=== PATIENT | male | born 1980 | race Caucasian/White ===

== ENCOUNTER 2020-08-02 16:00 | Outpatient (RCR) | payer OTHER, SELFPAY | END 2020-08-03 17:17 | disposition other institution (70) | LOC: HO.PT 16:00 | PROVIDERS: PCP Internal Medicine; Visit Provider Physical Medicine & Rehabilitation | DX: M54.5 Low back pain (principal) | CPT/HCPCS: 97110; 97530 ==

== ENCOUNTER 2022-05-22 04:22 | Emergency (ER) | payer OTHER, SELFPAY ==
--- NOTE | ~2022-05-22 | XR_ITS ---
EXAMINATION: XR ANKLE, LEFT CLINICAL INFORMATION: Fall. Pain. COMPARISON: None TECHNIQUE: AP, lateral, and mortise views of the left ankle. FINDINGS: No fracture or dislocation. The ankle mortise is congruent. No ankle joint effusion. Mild medial soft tissue swelling. XR/XR ankle LT min 3V IMPRESSION: Mild soft tissue swelling. No acute osseous abnormality.
[2022-05-22 04:30] VITALS: BP 156/97; PULSE 98; RESP 18; TEMP 37.1; O2SAT 99; BMI 40.1
--- NOTE | 2022-05-22 04:52 | ED_ITS ---
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 Patient denies any fever chills any systemic. Able to ambulate. No distress Related Data Previous Rx's Medication Instructions Recorded ibuprofen 400 mg tablet 400 mg PO Q6H PRN pain #20 tabs 05/22/22 Allergies Allergy/AdvReac Type Severity Reaction Status Date / Time dog dander Allergy Unknown RUNNY NOSE Unverified 05/18/20 16:15 Horse/Equine Containing Allergy Unknown RUNNY NOSE Unverified 05/18/20 16:15 Products [HORSE/EQUINE CONTAINING PRODUCTS] Environmental/Seasonal Allergy Unknown Uncoded 09/13/16 00:00 Allergi Pt states no known food Allergy Unknown Uncoded 09/13/16 00:00 allerg SEASONAL ALLERGIES Allergy Unknown WATERY EYES Uncoded 05/18/20 16:15 Review of Systems Review of Systems: Positive twisting right ankle Yes all other systems are reviewed and are negative [facility] Past Medical History Attestation statement: The following information was validated with the patient. Social History Social History Advance Directives: No Advance Directives Information Provided: No Physical Exam Vital Signs: Vital Signs: Last Vital Signs Temp 98.7 F 05/22/22 04:30 Pulse 98 05/22/22 04:30 Resp 18 05/22/22 04:30 BP 156/97 H 05/22/22 04:30 Pulse Ox 99 05/22/22 04:30 O2 Del Method 05/22/22 04:30 BMI result Body Mass Index 40.1 Appearance: Alert. Oriented X3. No acute distress. Eyes: Pupils equal, round and reactive to light. ENT: Pharynx normal. Neck: Normal inspection. Neck supple. No lymph nodes noted. No crepitus CVS: Normal heart rate and rhythm. Pulses normal. Normal S1 and S2 Respiratory: No respiratory distress. Breath sounds normal. No Wheezing. No rales Abdomen: Soft and nontender. No rigidity. No distention. good BS x4 Skin: Skin warm and dry. Normal skin color. Normal skin turgor. Extremities: No lower extremity edema. Neurovascular intact to all extremities. No Lacerations. No Rash. Minimal pain on palpation of the medial malleolus. There is no pain at the base of the 5th metatarsal. No pain at the posterior aspect of the lateral malleolus. Ambulates with normal gait. Distally neurovascularly Neuro: Oriented X 3. No motor deficit. No sensory deficit. Moving all extermities. No slurred speech MDM - Extremity Injury (Lower) MDM Narrative Medical decision making narrative: X-ray showed no acute fractures. Likely a sprain ankle. The patient takes Motrin pain. Follow-up with were connection on outpatient basis Discharge Plan Discharge Clinical Impression: Ankle sprain and strain Patient Disposition: Home, Self-Care Instructions: Ankle Sprain (ED) Additional Instructions: Off from work today. Follow up with were connection later on today Prescriptions: New ibuprofen 400 mg tablet 400 mg PO Q6H PRN (Reason: pain) Qty: 20 0RF Referrals: [facility] [Provider Group]
--- NOTE | 2022-05-22 05:08 | PC.NURSE ---
Reviewed discharge instructions with pt. pt verbalized understanding
== END 2022-05-22 05:09 | disposition home or self-care (01) ==
PROVIDERS: Emergency Provider Emergency Medicine Emergency Medical Services; PCP Internal Medicine
DX: S93.401A Sprain of unspecified ligament of right ankle, initial encounter (principal); S96.911A Strain of unspecified muscle and tendon at ankle and foot level, right foot, initial encounter; X50.1XXA Overexertion from prolonged static or awkward postures, initial encounter; Y93.89 Activity, other specified; Y92.89 Other specified places as the place of occurrence of the external cause; Y99.0 Civilian activity done for income or pay
CPT/HCPCS: 73610; 99282; 99283

== ENCOUNTER → 2022-05-23 07:52 | Outpatient (BNVA) | payer OTHER, SELFPAY | PROVIDERS: PCP Internal Medicine; Visit Provider Internal Medicine | DX: S93.492A Sprain of other ligament of left ankle, initial encounter (principal); X50.1XXA Overexertion from prolonged static or awkward postures, initial encounter | CPT/HCPCS: 99202 ==

== ENCOUNTER → 2022-05-27 09:04 | Outpatient (BNVA) | payer OTHER, SELFPAY | PROVIDERS: PCP Internal Medicine; Visit Provider Internal Medicine | DX: S93.492A Sprain of other ligament of left ankle, initial encounter (principal); X50.1XXA Overexertion from prolonged static or awkward postures, initial encounter | CPT/HCPCS: 99213 ==

== ENCOUNTER → 2022-06-03 07:41 | Outpatient (BNVA) | payer OTHER, SELFPAY | PROVIDERS: PCP Internal Medicine; Visit Provider Internal Medicine | DX: S93.492D Sprain of other ligament of left ankle, subsequent encounter (principal); X50.1XXD Overexertion from prolonged static or awkward postures, subsequent encounter | CPT/HCPCS: 99213 ==

== ENCOUNTER → 2022-06-14 07:55 | Outpatient (BNVA) | payer OTHER, SELFPAY | PROVIDERS: PCP Internal Medicine; Visit Provider Internal Medicine | DX: S93.492D Sprain of other ligament of left ankle, subsequent encounter (principal); X50.1XXD Overexertion from prolonged static or awkward postures, subsequent encounter | CPT/HCPCS: 99213 ==

== ENCOUNTER → 2022-06-21 07:42 | Outpatient (BNVA) | payer OTHER, SELFPAY | PROVIDERS: PCP Internal Medicine; Visit Provider Internal Medicine | DX: S93.492D Sprain of other ligament of left ankle, subsequent encounter (principal); X50.1XXD Overexertion from prolonged static or awkward postures, subsequent encounter | CPT/HCPCS: 99213 ==

== ENCOUNTER → 2022-07-01 07:47 | Outpatient (BNVA) | payer OTHER, SELFPAY | PROVIDERS: PCP Internal Medicine; Visit Provider Internal Medicine | DX: S93.492D Sprain of other ligament of left ankle, subsequent encounter (principal); X50.1XXD Overexertion from prolonged static or awkward postures, subsequent encounter | CPT/HCPCS: 99213 ==

== ENCOUNTER 2022-07-15 07:57 | Outpatient (REF) | payer OTHER, SELFPAY ==
--- NOTE | ~2022-07-15 | MR_ITS ---
EXAMINATION: MRI OF THE LEFT ANKLE WITHOUT CONTRAST CLINICAL INFORMATION: Injury left ankle. Left ankle pain. COMPARISON: None. TECHNIQUE: MRI of the left ankle performed without contrast high-field MRI scanner. FINDINGS: SUBCUTANEOUS SOFT TISSUES: Minimal edema along the medial aspect of the ankle. MUSCLES/TENDONS: Normal. PLANTAR FASCIA: Normal. NEUROVASCULAR STRUCTURES/TARSAL TUNNEL: Normal. LIGAMENTS: Deltoid Ligament: There is heterogeneity and increased signal along the superficial fibers of the deltoid ligament compatible partial tear likely acute or subacute. Anterior Talofibular Ligament: There is increased T2 signal along the otherwise normal-appearing ligament compatible with a low-grade partial tear. Remaining ligaments intact. BONE/CARTILAGE: There is prominent bone marrow edema in the head and neck of the talus. Question slight concavity along the articular surface of the talar head. This most likely reflects an area of bone contusion or osteochondral impaction fracture of the head of the talus. There is a mild effusion of the talonavicular joint. Remaining bone and joints are unremarkable. MR/MR ankle LT wo con IMPRESSION: 1. Partial tears of the deltoid ligament and anterior talofibular ligament likely acute or subacute. 2. Bone contusion of the head of the talus versus osteochondral impaction fracture. 3. Mild effusion of the talonavicular joint.
== END 2022-07-15 07:58 | disposition home or self-care (01) ==
LOC: HO.MRI 07:57
PROVIDERS: Visit Provider Internal Medicine
DX: S99.912A Unspecified injury of left ankle, initial encounter (principal); M25.572 Pain in left ankle and joints of left foot; X58.XXXA Exposure to other specified factors, initial encounter; Y93.9 Activity, unspecified; Y92.9 Unspecified place or not applicable; Y99.9 Unspecified external cause status
CPT/HCPCS: 73721

== ENCOUNTER → 2022-07-22 07:45 | Outpatient (BNVA) | payer OTHER, SELFPAY | PROVIDERS: PCP Internal Medicine; Visit Provider Internal Medicine | DX: S93.492D Sprain of other ligament of left ankle, subsequent encounter (principal); X50.1XXD Overexertion from prolonged static or awkward postures, subsequent encounter | CPT/HCPCS: 99213 ==

== ENCOUNTER → 2022-10-02 11:24 | Outpatient (BNVA) | payer OTHER, SELFPAY | PROVIDERS: PCP Internal Medicine; Visit Provider Physician Assistant Medical | DX: S39.012A Strain of muscle, fascia and tendon of lower back, initial encounter (principal); X58.XXXA Exposure to other specified factors, initial encounter | CPT/HCPCS: 99202 ==

== ENCOUNTER → 2022-10-07 13:03 | Outpatient (BNVA) | payer OTHER, SELFPAY | PROVIDERS: PCP Internal Medicine; Visit Provider Physician Assistant Medical | DX: S39.012A Strain of muscle, fascia and tendon of lower back, initial encounter (principal); X58.XXXA Exposure to other specified factors, initial encounter | CPT/HCPCS: 99213 ==

== ENCOUNTER → 2022-10-17 09:30 | Outpatient (BNVA) | payer OTHER, SELFPAY | PROVIDERS: PCP Internal Medicine; Visit Provider Physician Assistant | DX: S39.012A Strain of muscle, fascia and tendon of lower back, initial encounter (principal); X58.XXXD Exposure to other specified factors, subsequent encounter | CPT/HCPCS: 99213 ==

== ENCOUNTER 2023-03-01 08:54 | Outpatient (REF) | payer OTHER, SELFPAY ==
[2023-03-01 09:52] LABS: Alanine Aminotransferase 31 U/L (0-40); Albumin Level 4.1 g/dL (3.5-5.0); Alkaline Phosphatase 60 U/L (39-117); Anion Gap 16 (12-20); Aspartate Amino Transferase 16 U/L (5-37); Bilirubin Total 1.5 mg/dL (0.0-1.0); Blood Urea Nitrogen 19 mg/dL (9-16); Calcium 9.4 mg/dL (8.4-10.2); Carbon Dioxide 26 mmol/L (22-29); Chloride 108 mmol/L (96-108); Cholesterol 206 mg/dL; Estimated Glomerular Filt Rate > 60; Glucose Fasting 100 mg/dL (60-99); HDL Cholesterol 33 mg/dL; LDL Cholesterol Calculated 130 mg/dl; Potassium 4.2 mmol/L (3.3-5.1); Sodium 146 mmol/L (135-145); Total Protein 7.3 g/dL (6.5-8.0); Triglycerides 217 mg/dL
[2023-03-01 10:09] LABS: Thyroid Stimulating Hormone 1.04 uIU/mL (0.32-4.0)
== END 2023-03-01 08:55 | disposition home or self-care (01) ==
LOC: HO.LAB 08:54
PROVIDERS: PCP Internal Medicine; Visit Provider Internal Medicine
DX: D64.9 Anemia, unspecified (principal); E78.5 Hyperlipidemia, unspecified; I10 Essential (primary) hypertension
CPT/HCPCS: 36415; 80053; 80061; 84443; 85025

== ENCOUNTER → 2023-03-26 14:39 | Outpatient (REF) | payer OTHER, SELFPAY ==
--- NOTE | 2023-03-26 14:42 | CA_ITS ---
Transthoracic Echocardiogram Patient (Last, First, Middle): Chandler Aguirre M Gender: Male Date of : 1980 Age: 42 Procedure Date: 03/26/2023 Procedure Type: Transthoracic Echocardiogram Location: OP Height: 180.34 cm Weight: 127.01 kg BSA: 2.43 m2 Heart Rate: bpm BP: 142 / 80 mmHg Product Marketer: Referring MD: Too Earl MD Ese Teacher: Lul Gutierres MD Symptoms: I10 HTN, BP DIFFERS ON EACH ARM Study Quality: Good w Definity ECG Rhythm: Sinus Conclusions: - 1. Normal LV ejection fraction of 60 65% with moderate left ventricular hypertrophy with impaired relaxation filling pattern 2. Normal cardiac valvular Dopplers 3. Normal RV systolic pressure 4. No gross pericardial effusion Findings Left Ventricle Normal left ventricular size and systolic function. There is moderately increased left ventricular wall thickness. The visually estimated ejection fraction is between 60-65%. Spectral Doppler is indicative of an impaired relaxation filling pattern. E/E prime ratio is between 8 and 15 consistent with indeterminate filling pressures. Right Ventricle Normal right ventricular cavity size and systolic function. Atria The left atrium is normal in size. There is no evidence of interatrial shunt. The right atrium is normal in size. Aortic Valve Normal aortic valve structure and function. There is no aortic valve stenosis. There is no aortic valve regurgitation. Mitral Valve Likely normal mitral valve structure and function. There is trace mitral valve regurgitation. There is no mitral valve stenosis. Pulmonic Valve The pulmonic valve was not well visualized. Tricuspid Valve Likely normal tricuspid valve structure and function. There is trace tricuspid valve regurgitation. The right ventricular systolic pressure is normal. The right ventricular systolic pressure is 19 mmHg. Normal right atrial pressure. There is no evidence of pulmonary hypertension. Great Vessels All visible segments of the aorta are normal in size. The pulmonary artery was not well visualized. There is no dilatation of the ascending aorta measuring 3.40 cm. Venous The inferior vena cava is normal in size and collapses greater than 50% with inspiration. Pericardium/Pleural There is no evidence of pericardial effusion. Measurements 2D Linear Measurements IVSd: 1.46 0.6-0.9/0.6-1.0 cm LVIDd: 3.96 3.9-5.3/4.2-5.9 cm LVIDd Index: 1.63 2.4-3.2/2.2-3.1 cm/m2 LVIDs: 2.71 2.0-3.6 cm LVPWd: 1.40 0.7-1.1 cm Ao Root: 3.40 2.1-3.5 cm LA Diam: 3.60 2.7-3.8/3.0-4.0 cm LAIDs Index: 1.48 1.5-2.3 cm/m2 LV Mass: 265.32 67-162/88-224 g LV Mass Index: 109.19 43-95/49-115 g/m2 LVOT Diam: 2.10 3.0+(-)1.3 cm 2D Systolic Function EF 4C: 61.10 >55% EF 2C: 72.70 >55% EF BiP: 66.90 >55% Mitral Valve MV Pk E: 0.68 MV PK A: 0.66 MV Decel Time: 160.00 E/A: 1.00 E'Lateral: 12.80 E'Medial: 6.85 E/E' Med: 9.90 E/E' Lat: 5.30 PHT: 47.00 MVA PHT: 4.68 Decel [place]: 4.22 Aortic Valve AoV Pk Frankie: 1.42 AoV Mn Frankie: 0.87 AoV VTI: 0.22 AoV Pk Grad: 8.00 Aov Mn Grad: 4.00 CHONG Cont.VTI: 3.55 LVOT LVOT Pk Frankie: 1.22 LVOT Mn Frankie: 0.85 LVOT VTI: 0.23 LVOT Pk Grad: 6.00 LVOT Mn Grad: 3.00 LVOT Diam: 2.10 LVOT Area: 3.46 Diastolic Function MV Pk E: 0.68 MV Pk A: 0.66 E/A: 1.00 E'Medial: 6.85 E/E' Med: 9.90 E' Laterial: 12.80 E/E' Lat: 5.30 Right Ventricle TAPSE (mm): 18.00 TVS' Frankie: 13.00 Tricuspid Valve TR Pk Frankie: 2.00 TR Pk Grad: 16.00 RA Press: 3.00 RVSP: 19.00 Great Vessels Aorta Ao Root-2D: 3.40 2.0-3.7 cm Ao Asc: 3.40 2.1-3.4 cm Pulmonary Valve PV Pk Frankie: 1.09 Peak PV Grad: 5.00 Updated in Other Vendor System with Status of Final Lul Gutierres MD electronically signed on 03/27/2023 12:29:45 PM with status of Final
== END ==
LOC: HO.CARD 14:39
PROVIDERS: PCP Internal Medicine; Visit Provider Internal Medicine
DX: I10 Essential (primary) hypertension (principal)
CPT/HCPCS: 93306; Q9957

== ENCOUNTER → 2023-03-26 14:42 | Outpatient (BNV) | payer OTHER, SELFPAY | PROVIDERS: PCP Internal Medicine; Visit Provider Internal Medicine Cardiovascular Disease | DX: I10 Essential (primary) hypertension (principal) | CPT/HCPCS: 93306 ==

== ENCOUNTER 2024-07-24 09:49 | Outpatient (REF) | payer BC, SELFPAY ==
[2024-07-24 10:23] LABS: MANUAL DIFF FLAG NO
[2024-07-24 11:11] LABS: Basophils Absolute Auto 0.1 X10*3/uL (0.0-0.2); Eosinophils Absolute Auto 0.1 X10*3/uL (0.0-0.4); Eosinophils Percent Auto 1.2 % (0-4); Hematocrit 46.7 % (42.0-52.0); Hemoglobin 15.7 g/dl (14.0-18.0); Imm Gran Abs Auto 0.03 X10*3/uL (0.00-0.03); Imm Gran Pct Auto 0.4 % (0.0-0.4); Lymphocytes Percent Auto 26.9 % (20-40); Mean Corpuscular HGB Conc 33.6 g/dl (31.0-36.0); Mean Corpuscular Hemoglobin 31.5 pg (27.0-33.0); Mean Corpuscular Volume 93.6 fL (80.0-98.0); Mean Platelet Volume 9.4 fL (9.4-12.4); Monocytes Absolute Auto 0.6 X10*3/uL (0.1-1.2); Monocytes Percent Auto 8.4 % (2-11); Neutrophils Absolute Auto 4.6 x10*3/uL (2.0-8.3); Neutrophils Percent Auto 62.1 % (45-73); Platelet Count 284 X10*3/uL (160-400); Red Blood Count 4.99 X10*6/uL (4.60-5.80); Red Cell Distribution Width 13.4 % (11.0-16.0); White Blood Count 7.4 X10*3/uL (4.8-10.8)
[2024-07-24 11:46] LABS: Alanine Aminotransferase 42 U/L (0-40); Albumin Level 4.1 g/dL (3.5-5.0); Alkaline Phosphatase 54 U/L (39-117); Anion Gap 11 (12-20); Aspartate Amino Transferase 26 U/L (5-37); Blood Urea Nitrogen 17 mg/dL (9-16); Calcium 9.1 mg/dL (8.4-10.2); Carbon Dioxide 27 mmol/L (22-29); Chloride 109 mmol/L (96-108); Cholesterol 207 mg/dL (<200); Estimated Glomerular Filt Rate > 60; Glucose Fasting 103 mg/dL (60-99); HDL Cholesterol 33 mg/dL (>40); LDL Cholesterol Calculated 145 mg/dL (<100); Potassium 4.4 mmol/L (3.3-5.1); Sodium 143 mmol/L (135-145); Triglycerides 148 mg/dL (<150)
== END 2024-07-24 09:50 | disposition home or self-care (01) ==
LOC: HO.LAB 09:49
PROVIDERS: PCP Internal Medicine; Visit Provider Internal Medicine
DX: I10 Essential (primary) hypertension (principal); E78.00 Pure hypercholesterolemia, unspecified
CPT/HCPCS: 36415; 80053; 80061; 85025

== ENCOUNTER 2024-10-02 08:17 | Emergency (ER) | payer BC, SELFPAY ==
--- NOTE | ~2024-10-02 | XR_ITS ---
CLINICAL HISTORY: fall 3 views right wrist Comparison: None Findings: Small triquetral fracture. Distal radiocarpal joint intact. Radial and ulnar styloid preserved. Probable bone island scaphoid. Bone mineralization and soft tissues within normal limits. No radiopaque foreign body. Impression: 1. Subtle triquetral fracture. Probable bone island scaphoid. This document has been electronically signed by: Yonatan Fall MD on 10/02/2024 08:52:11
[2024-10-02 08:28] VITALS: BP 128/89; PULSE 103; RESP 16; TEMP 36.4; O2SAT 98; BMI 39.0
--- NOTE | 2024-10-02 09:49 | ED_ITS ---
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 Patient states that while he was leaving work this morning, he accidentally slipped on ice and landed with his arm outstretched in front of him. He denies hitting his head or LOC. He is right-hand dominant. Pain worsens in his right hand and wrist with movement and with palpation. He is not on anticoagulation. Patient also reports that he has had back pain since the injury. He states that he feels as though his muscles are spasmed up. No other complaints or concerns at this time. MD complaint: Right hand/wrist pain Onset (ago): hour(s) Location: upper extremity Radiation: non-radiation Severity: moderate Quality: aching Pain Consistency: constant Relieving factors: none Exacerbating factors: none Associated symptoms: denies other symptoms Treatments prior to arrival: none Related Data Previous Rx's ?Medication ?Instructions ?Recorded ibuprofen 400 mg tablet 400 mg PO Q6H PRN pain #20 tabs 05/22/22 cyclobenzaprine 10 mg tablet 10 mg PO TID PRN muscle spasm #20 10/02/22 tabs ibuprofen 800 mg tablet 800 mg PO TID PRN pain #30 tabs 10/02/22 Allergies Allergy/AdvReac Type Severity Reaction Status Date / Time dog dander Allergy Unknown RUNNY NOSE Verified 10/02/24 08:31 Horse/Equine Containing Allergy Unknown RUNNY NOSE Verified 10/02/24 08:31 Products [HORSE/EQUINE CONTAINING PRODUCTS] Environmental/Seasonal Allergy Unknown Runny Nose Uncoded 10/02/24 08:31 Allergi Pt states no known food Allergy Unknown Unknown Uncoded 10/02/24 08:31 allerg SEASONAL ALLERGIES Allergy Unknown WATERY EYES Uncoded 05/18/20 16:15 Review of Systems Review of Systems: Yes all other systems are reviewed and are negative Constitutional: Constitutional: Reports as per [facility] Social History Social History Advance Directives: No Advance Directives Information Provided: No Physical Exam ED Vital Signs: Vital Signs - 24 hr 10/02/24 08:28 Temperature 97.6 F Pulse Rate 103 H Respiratory Rate 16 Blood Pressure 128/89 Pulse Oximetry 98 Oxygen Delivery Method Room Air BMI result Body Mass Index 39.0 Const General: cooperative, comfortable and no acute distress Orientation/consciousness: patient oriented x3 Limitations: no limitations HENMT Head: Yes normal to inspection, Yes normocephalic and Yes atraumatic Ears: hearing grossly normal bilaterally General nose exam: Normal external nose present Face and sinus: Yes normal facial exam Mouth: Normal oral and palatal mucosa present, oropharynx normal and moist mucous membranes Throat: Yes posterior oropharynx normal Eyes General: appearance normal, both eyes and all related structures Eyelids: Yes eyelids normal Conjunctivae: conjunctivae normal Sclerae: sclerae normal Pupils: Equal, round and reactive pupils present EOM: EOMs intact bilaterally Neck Neck: Yes normal visual inspection, Yes full ROM and Yes no lymphadenopathy Lymphatic: no lymphadenopathy noted Chest Chest palpation & inspection: normal inspection of the chest Resp Effort & Inspection: normal respiratory effort and able to speak in complete sentences Auscultation: clear to auscultation bilaterally, no crackles, no rales, no rhonchi and no wheezes Cardio Rate: regular rate Rhythm: regular rhythm Heart sounds: S1 normal heart sound present and S2 normal heart sound present GI Inspection: Yes normal to inspection Back/Spine/Pelvis Other: No midline spine tenderness on examination, patient has diffuse tenderness throughout lumbar paraspinous muscles, he is ambulatory with steady gait. No overlying skin changes, for bony abnormalities. Skin General skin exam: no rashes or lesions noted Trauma: no lacerations or abrasions Wounds: no wounds Neuro General: patient oriented x3 and moves all extremities Cranial nerves: Yes Equal, round and reactive pupils present Extrem Other: Right hand with no obvious bony deformity or swelling. Strong radial pulse. No open wounds or lacerations. Patient has tenderness palpation along the distal radius. Full ROM of the wrist without difficulty, full ROM of the digits, nontender metacarpal bones. General: Yes normal to inspection Right upper extremity: normal to inspection Left upper extremity: normal to inspection Right lower extremity: normal to inspection Left lower extremity: normal to inspection Procedures Orthopedic Splinting/Casting Injury #1: Side: right Upper Extremity Injury Location: wrist Upper Extremity Immobilizer: volar splint Medical Decision Making Medical Decision Making MDM Narrative: This is a 44-year-old male who presents emergency department with complaints of right hand and wrist pain since slip and fall which occurred early this morning. On arrival, patient mildly tachycardic at 103bpm, all other vital signs within normal limits. There is no head strike or LOC. He is not on anticoagulation. Fall was mechanical. X-ray of the wrist was performed revealing a subtle triquetral fracture, probable bone island scaphoid fracture. Will place patient in volar splint. He will also follow-up with the academic specialist. Declining ibuprofen and or Tylenol while waiting. Patient stable for discharge after splinting. Tolerated splinting procedure well without complications or concerns. Differential Diagnosis Differential Diagnoses: The differential diagnosis associated with the presentation includes Fracture, contusion, sprain, strain Radiology Impression Discussion of test interpretation with radiology: I have reviewed the radiologist's reading. Radiologist Impression: CLINICAL HISTORY: fall 3 views right wrist Comparison: None Findings: Small triquetral fracture. Distal radiocarpal joint intact. Radial and ulnar styloid preserved. Probable bone island scaphoid. Bone mineralization and soft tissues within normal limits. No radiopaque foreign body. Impression: 1. Subtle triquetral fracture. Probable bone island scaphoid. This document has been electronically signed by: Yonatan Fall MD on 10/02/2024 08:52:11 Dictated By: Yonatan Fall MD Discharge Plan Discharge Clinical Impression: Lumbar paraspinal muscle spasm Closed fracture of triquetral bone of right wrist Qualifiers: Encounter type: initial encounter Patient Disposition: Home, Self-Care Instructions: Wrist Fracture in Adults (ED) Additional Instructions: You were seen in the emergency department due to a slip and fall. Your x-ray shows a subtle triquetral fracture. Please wear wrist splint until you follow-up with the academic specialist. Call on Friday to make an appointment. If you have decreased sensation in your fingers, changes in coloration of your fingers, or feeling as though the splint is too tight, please seek emergent care. Alternate between ibuprofen and or Tylenol as needed for pain and symptoms. If any new or worsening symptoms occur including but not limited to worsening pain, swelling, please seek emergent care. Prescriptions: No Action ibuprofen 400 mg tablet 400 mg PO Q6H PRN (Reason: pain) Qty: 20 0RF cyclobenzaprine 10 mg tablet 10 mg PO TID PRN (Reason: muscle spasm) Qty: 20 0RF Rx Instructions: Do not drive or do safety sensitive work while taking this medication ibuprofen 800 mg tablet 800 mg PO TID PRN (Reason: pain) Qty: 30 0RF Referrals: [facility] [Provider Group] Print Language: Ukrainian
[2024-10-02 10:54] VITALS: BP 128/89; PULSE 103; RESP 16; TEMP 36.4; O2SAT 98
== END 2024-10-02 10:55 | disposition home or self-care (01) ==
PROVIDERS: Emergency Provider Emergency Medicine; PCP Internal Medicine
DX: S62.111A Displaced fracture of triquetrum [cuneiform] bone, right wrist, initial encounter for closed fracture (principal); W00.0XXA Fall on same level due to ice and snow, initial encounter; M62.830 Muscle spasm of back; M79.641 Pain in right hand; R00.0 Tachycardia, unspecified; Y93.89 Activity, other specified; Y92.9 Unspecified place or not applicable; Y99.0 Civilian activity done for income or pay
CPT/HCPCS: 29125; 73100; 99282; 99283

== ENCOUNTER → 2024-10-02 08:40 | Outpatient (BNV) | payer BC, SELFPAY | PROVIDERS: PCP Internal Medicine; Visit Provider Radiology Diagnostic Radiology | DX: S62.111A Displaced fracture of triquetrum [cuneiform] bone, right wrist, initial encounter for closed fracture (principal) | CPT/HCPCS: 73100 ==

== ENCOUNTER 2024-10-12 08:51 | Outpatient (REF) | payer BC, SELFPAY ==
--- NOTE | ~2024-10-12 | XR_ITS ---
CLINICAL HISTORY: M25.531 - Pain in right wrist 3 views right wrist Comparison: 10/02/2024 Findings: No dislocations. No significant arthritic change No radiopaque foreign body Impression: Healing nondisplaced triquetrum cortical fracture in good alignment. This document has been electronically signed by: Dion Rose MD on 10/12/2024 15:51:35
== END 2024-10-12 08:52 | disposition home or self-care (01) ==
LOC: HO.HOSX 08:51
PROVIDERS: PCP Internal Medicine; Visit Provider Orthopaedic Surgery
DX: M25.531 Pain in right wrist (principal); S62.111A Displaced fracture of triquetrum [cuneiform] bone, right wrist, initial encounter for closed fracture; W00.0XXA Fall on same level due to ice and snow, initial encounter; Y93.01 Activity, walking, marching and hiking; Y92.89 Other specified places as the place of occurrence of the external cause; Y99.9 Unspecified external cause status
CPT/HCPCS: 25630; 73110

== ENCOUNTER → 2024-10-12 08:59 | Outpatient (BNV) | payer BC, SELFPAY | PROVIDERS: PCP Internal Medicine; Visit Provider Radiology Diagnostic Radiology | DX: S62.121D Displaced fracture of lunate [semilunar], right wrist, subsequent encounter for fracture with routine healing (principal) | CPT/HCPCS: 73110 ==

== ENCOUNTER 2024-10-12 10:10 | Outpatient (AMB) | payer BC, SELFPAY ==
--- NOTE | 2024-10-12 10:20 | MHC.OFFVIS ---
Vital Signs 10/12/24 10:24 Height 5 ft 11 in Weight 280 lb BMI 39.0 Intake Visit Reasons: FC- RT wrist triquetral fx DOI 10/02/24 Intake Note: Chandler 44 yr old right-hand dominant male presents today as a new patient for his right hand pain status post falling down on 10/02/24. Patient states that while he was leaving work, he accidentally slipped on ice and landed with his arm outstretched in front of him. Pain worsens in his right hand and wrist with movement. Seen in ED same day where xrays were taken, a fracture was confirmed and patient place in a splint. Currently states he has no pain since being placed in a splint. Denies numbness or tingling. Accompanied by: Christie Allergies dog dander Allergy (Unknown, Verified 10/12/24 10:25) RUNNY NOSE Horse/Equine Containing Products [HORSE/EQUINE CONTAINING PRODUCTS] Allergy (Unknown, Verified 10/12/24 10:25) RUNNY NOSE Environmental/Seasonal Allergi Allergy (Unknown, Uncoded 10/12/24 10:25) Runny Nose Pt states no known food allerg Allergy (Unknown, Uncoded 10/12/24 10:25) Unknown SEASONAL ALLERGIES Allergy (Unknown, Uncoded 10/12/24 10:25) WATERY EYES HPI HPI FC- RT wrist triquetral fx DOI 10/02/24: Details: Chandler is a 44 year old right hand dominant man who presents for a right triquetral fracture, S/P fall, DOI: 10/02/24 while leaving work. He was seen in the ED the same day and placed in a volar wrist splint. He denies this being a workplace injury. 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 He says he is doing well overall. He denies any pain since he was placed in his splint, but says he has pain in his hand & wrist with motion. He denies any numbness or tingling. 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 Review of Systems Const All systems reviewed & are unremarkable except as noted in HPI and below Physical Exam Vital Signs: BMI result Body Mass Index 39.0 Const General: cooperative, healthy appearing and no acute distress Orientation/consciousness: patient oriented x3 HEENT Head: Yes normocephalic and Yes atraumatic Eyes EOM: EOMs intact bilaterally Resp Effort & Inspection: normal respiratory effort and able to speak in complete sentences Cardio Jugular venous distension: no JVD Skin General skin exam: turgor normal Rashes: no rashes Neuro General: patient oriented x3 Extrem Other: Evaluation of Right Upper Extremity: The patient is alert, oriented, and in no acute distress Neuro: Median, Ulnar, Radial nerves motor and sensory intact and sensation is normal to the tips of all digits Vascular: Cap refill brisk ROM: He can make a fist and extend all his digits Skin: No lacerations or abrasions, or evidence of open fracture General: No Erythema or evidence of infection. Mild resolving ecchymosis Tender over Triquetrum Tender with firm palpation over the Pisiform Radiographs: 3 views of the right wrist were taken and viewed by me today in clinic. They show a nondisplaced triquetral body fracture. Psych Appearance: grossly normal Affect: normal affect Attitude: cooperative Office Procedures AMB Fracture Care Details: Insert fracture care [id number] triquetrum Fracture Billing Code: Fracture Billing Code Assessment & Plan Assessment & Plan (1) Fracture of triquetral bone of right wrist: Code(s): S62.111A - Displaced fracture of triquetrum [cuneiform] bone, right wrist, initial encounter for closed fracture Category: Medical Plan Assessment & Plan: 1. Right triquetral body fracture, S/P fall DOI: 10/02/24 I educated him about this condition I discussed operative and non-operative treatment options We will manage this conservatively, and he is in agreement He was fitted for a velcro wrist splint for the next 4 weeks. 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 He was given a note for work to return on light duty on 10/18/24, with a 2lb weight limit with his RUE and no use of Firearms for the next 4 weeks. He is able to work desk duty. Anticipate ~8 weeks before cleared for full duty, with firearm use. He will follow up in 4 weeks, with X-rays, 3V R wrist, OOP Scribed for May Tariq MD by Ethan Quinones, manager of medical, on 10/12/24 at 10:40 AM, EST. Orders: Orders XR wrist RT min 3V Today M25.531 - Pain in right wrist Coding Level of Care Code New Pt Level 3 (44674) Diagnoses Fracture of triquetral bone of right wrist S62.111A CPT Codes Fracture Care - Fracture Billing Code: Fracture Billing Code ([id number])
[2024-10-12 10:24] VITALS: BMI 39.0
== END 2024-10-12 11:05 | disposition home or self-care (01) ==
PROVIDERS: PCP Internal Medicine; Visit Provider Orthopaedic Surgery
DX: S62.111A Displaced fracture of triquetrum [cuneiform] bone, right wrist, initial encounter for closed fracture (principal)
CPT/HCPCS: 25630; 99203

== ENCOUNTER 2024-11-03 14:56 | Outpatient (AMB) | payer BC, SELFPAY ==
--- NOTE | 2024-11-03 15:05 | MHC.OFFVIS ---
Vital Signs 11/03/24 15:18 Height 5 ft 11 in Weight 280 lb BMI 39.0 Intake Visit Reasons: OV-RT wrist triquetral fx DOI 10/02/24 Intake Note: Chandler 44 yr old male presents today for his follow up visit for his Right triquetral body fracture, S/P fall DOI: 10/02/24. Atr his last visit he was given a velcro wrist brace and was given a note for work to return on light duty on 10/18/24, with a 2lb weight limit with his RUE and no use of Firearms for the next 4 weeks. He is able to work desk duty. Anticipate ~8 weeks before cleared for full duty, with firearm use. Currently states he has noticed it has improved. His pain is better and he has not been doing any heavy lifting. Allergies dog dander Allergy (Unknown, Verified 11/03/24 15:18) RUNNY NOSE Horse/Equine Containing Products [HORSE/EQUINE CONTAINING PRODUCTS] Allergy (Unknown, Verified 11/03/24 15:18) RUNNY NOSE Environmental/Seasonal Allergi Allergy (Unknown, Uncoded 11/03/24 15:18) Runny Nose Pt states no known food allerg Allergy (Unknown, Uncoded 11/03/24 15:18) Unknown SEASONAL ALLERGIES Allergy (Unknown, Uncoded 11/03/24 15:18) WATERY EYES HPI HPI OV-RT wrist triquetral fx DOI 10/02/24: Details: Chandler is a 44 year old right hand dominant man who returns for his right triquetral fracture, S/P fall, DOI: 10/02/24 while leaving work. 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 He says he is doing well overall. He says his pain has improved which he is happy about. He denies any numbness or tingling. 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 Physical Exam Vital Signs: BMI result Body Mass Index 39.0 Extrem Other: Evaluation of Right Upper Extremity: The patient is alert, oriented, and in no acute distress Neuro: Median, Ulnar, Radial nerves motor and sensory intact and sensation is normal to the tips of all digits Vascular: Cap refill brisk ROM: He can make a fist and extend all his digits He can make a tight fist with good strength and no pain Wrist ROM: Full & symmetrical pronosupination Resolved ecchymosis & swelling Mild tenderness over the dorsal aspect of the triquetrum Radiographs: 3 views of the right wrist were taken and viewed by me today in clinic. They show a nondisplaced triquetral body fracture with satisfactory fracture alignment and some evidence of interval bony healing. Assessment & Plan Assessment & Plan (1) Fracture of triquetral bone of right wrist: Code(s): S62.111A - Displaced fracture of triquetrum [cuneiform] bone, right wrist, initial encounter for closed fracture Category: Medical Plan Assessment & Plan: 1. Right triquetral body fracture, S/P fall DOI: 10/02/24 I educated him about this condition He will discontinue his splint at this time at home. He will continue to wear this out of the house with daily activities for the next 2 weeks. I discussed activity modifications, he is to begin using his hand for lightweight activities and slowly increase his weight limit as tolerated over the next few weeks. He will continue to work on ROM activities at home, with a focus on wrist flexion & extension I ordered OT hand therapy to work on ROM, strengthening, and normalizing function, with a focus on returning his ability to safely use a firearm. 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 He was given a note for work to continue on light duty, effective 11/04/24, with a 4lb weight limit with his RUE and no use of Firearms for the next 4 weeks. He is able to work desk duty. Anticipate ~4 more weeks before cleared for full duty, possibly with firearm use. We will ask him if he feels he is ready for full duty. He will follow up in 4 weeks for a ROM check, no x-rays unless he has a fall or new injury We will discuss his RTW status at his next appointment. Scribed for May Tariq MD by Ethan Quinones, er medical technician, on 3/5/25 at 3:35 PM, EST. Orders: Orders XR wrist RT min 3V Today M25.531 - Pain in right wrist OT Evaluation and Treatment Today S62.111A - Displaced fracture of triquetrum [cuneiform] bone, right wrist, initial encounter for closed fracture Coding Level of Care Code Global (04393) Diagnoses Fracture of triquetral bone of right wrist S62.111A
[2024-11-03 15:18] VITALS: BMI 39.0
== END 2024-11-03 15:49 | disposition home or self-care (01) ==
PROVIDERS: PCP Internal Medicine; Visit Provider Orthopaedic Surgery
DX: S62.111A Displaced fracture of triquetrum [cuneiform] bone, right wrist, initial encounter for closed fracture (principal)
CPT/HCPCS: 99024

== ENCOUNTER 2024-11-03 14:57 | Outpatient (REF) | payer BC, SELFPAY ==
--- NOTE | ~2024-11-03 | XR_ITS ---
EXAMINATION: XR WRIST 3 OR MORE VIEWS RIGHT HISTORY: M25.531 - Pain in right wrist COMPARISON: Comparison is made with prior examinations dated 10/12/2024 and 10/02/2024. FINDINGS: Three views of the right wrist are submitted. Osseous mineralization is normal. The previously seen triquetral fracture is not well visualized. The bones are otherwise intact. The joint spaces are preserved. The soft tissues are unremarkable. XR/XR wrist RT min 3V IMPRESSION: The previously seen triquetral fracture is not well visualized. Electronically signed by: Jeffrey Olmedo MD 11/08/2024 08:57 AM EDT
== END 2024-11-03 14:58 | disposition home or self-care (01) ==
LOC: HO.HOSX 14:57
PROVIDERS: Visit Provider Orthopaedic Surgery
DX: M25.531 Pain in right wrist (principal)
CPT/HCPCS: 73110

== ENCOUNTER → 2024-11-03 15:06 | Outpatient (BNV) | payer BC, SELFPAY | PROVIDERS: Visit Provider Radiology Diagnostic Radiology | DX: M25.531 Pain in right wrist (principal) | CPT/HCPCS: 73110 ==

== ENCOUNTER 2024-11-24 09:19 | Outpatient (RCR) | payer BC, SELFPAY ==
--- NOTE | 2024-11-17 11:48 | MHC.OT.EP ---
[address] [phone] Occupational Therapy Plan of Care Patient Name: Chandler Aguirre Date of Evaluation: 11/17/24 Diagnosis: R triquetral fx - closed Pain Location: Pain Score: 2 Pain Scale Used: Numeric (0 - 10) Aggravating Factors: pressure/ weight bearing into palm Alleviating Factors: Assessment: Pt is a R hand dominant male who injured his R wrist when he slipped on ice and fell on both hands on 10/02/24. Pt went home took care of his family and then went to the ED and was X-rayed and diagnosed w/ a triquetrum fx and was placed in a brace. 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 Pt reports minimal pain only w/ weight bearing activities. Pt would benefit from skilled OT therapy to decrease pain, increase strength, and functional use of his dominant hand. Frequency and Duration: The patient will be seen 1 x a week for 4 weeks Short Term Goals: Recruiting And Selection Consultant Goals: Pt will be complaint w/ HEP Pt will report 0/10 pain w/ weight bearing activities Pt will RPLOF Treatment Plan: Therapeutic Exercise Therapeutic Activity Home Exercise Program Splinting Neuro Re-ed Patient Education Desensitization/Sensory Re-ed Edema Control ADL Training Ultrasound NMES Iontophoresis Paraffin Fluidotherapy MHP Cold Packs Joint Mobilization Soft Tissue Mobilization Kinesiotaping Other (see comments) Electronically Signed By: Alize Guzman OTR/L Please Sign and return to therapist. Thank you once again for your referral.
== END 2024-12-15 11:41 | disposition home or self-care (01) ==
LOC: HO.OT 09:19
PROVIDERS: PCP Internal Medicine; Visit Provider Orthopaedic Surgery
DX: S62.111D Displaced fracture of triquetrum [cuneiform] bone, right wrist, subsequent encounter for fracture with routine healing (principal)
CPT/HCPCS: 97110; 97140; 97165

== ENCOUNTER 2024-12-01 10:28 | Outpatient (AMB) | payer BC, SELFPAY ==
--- NOTE | 2024-12-01 10:31 | MHC.OFFVIS ---
Intake Visit Reasons: OV-RT wrist triquetral fx DOI 10/02/24 Intake Note: Chandler 44 yr old male presents today for his follow up visit to check his ROM of his Right triquetral body fracture, S/P fall DOI: 10/02/24 and to discuss work status. 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 At his last visit he was given a note for work to continue on light duty, effective 11/04/24, with a 4lb weight limit with his RUE and no use of Firearms for the next 4 weeks. He is able to work desk duty. Patient reports he is doing well, states that he is not having any pain or discomfort. He would like to discuss possible RTW full duty. Allergies dog dander Allergy (Unknown, Verified 12/01/24 10:35) RUNNY NOSE Horse/Equine Containing Products [HORSE/EQUINE CONTAINING PRODUCTS] Allergy (Unknown, Verified 12/01/24 10:35) RUNNY NOSE Environmental/Seasonal Allergi Allergy (Unknown, Uncoded 12/01/24 10:35) Runny Nose Pt states no known food allerg Allergy (Unknown, Uncoded 12/01/24 10:35) Unknown SEASONAL ALLERGIES Allergy (Unknown, Uncoded 12/01/24 10:35) WATERY EYES HPI HPI OV-RT wrist triquetral fx DOI 10/02/24: Details: Chandler is a 44 year old right hand dominant man who returns for his right triquetral fracture, S/P fall, DOI: 10/02/24 while leaving work. 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 He says he is doing well overall. He says his pain has improved which he is happy about. He denies any numbness or tingling. 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 He feels he is ready to return to full-time duty, including firearms use. 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 Physical Exam Extrem Other: Evaluation of Right Upper Extremity: The patient is alert, oriented, and in no acute distress Neuro: Median, Ulnar, Radial nerves motor and sensory intact and sensation is normal to the tips of all digits Vascular: Cap refill brisk ROM: He can make a fist and extend all his digits He can make a tight fist with good strength and no pain Wrist ROM: Full & symmetrical pronosupination Full & symmetrical wrist flexion & extension Resolved ecchymosis & swelling No tenderness over the dorsal aspect of the triquetrum, and elsewhere on the wrist Assessment & Plan Assessment & Plan (1) Fracture of triquetral bone of right wrist: Code(s): S62.111A - Displaced fracture of triquetrum [cuneiform] bone, right wrist, initial encounter for closed fracture Category: Medical Plan Assessment & Plan: 1. 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 He was given a note for work to return to full duty, without restrictions, effective 12/06/24 He can follow up prn Scribed for May Tariq MD by Ethan Quinones, medical supervisor, on 12/01/24 at 10:35 AM, EST. Coding Level of Care Code Global (17549) Diagnoses Fracture of triquetral bone of right wrist S62.111A
== END 2024-12-01 10:38 | disposition home or self-care (01) ==
LOC: HO.HOS 10:28
PROVIDERS: PCP Internal Medicine; Visit Provider Orthopaedic Surgery
DX: S62.111A Displaced fracture of triquetrum [cuneiform] bone, right wrist, initial encounter for closed fracture (principal)
CPT/HCPCS: 99024

== ENCOUNTER 2025-04-04 13:48 | Outpatient (AMB) | payer BC, SELFPAY ==
--- NOTE | 2025-04-04 13:52 | A.OFFPC_ITS ---
Vital Signs 04/04/25 13:56 04/04/25 14:00 BP 92/44 L 116/67 Blood Pressure Location Lt brachial Lt brachial Position Sitting Sitting Respiration 16 Pulse 76 Pulse Source Pulse Oximeter Temp 97.6 F Temp Source Temporal Artery Scan Pulse Oximetry (%) 97 Oxygen Delivery Method Room Air Intake Visit Reasons: routine - see comments Furnace Attendant Required: No Accompanied by: Spouse Allergies dog dander Allergy (Unknown, Verified 04/04/25 13:53) RUNNY NOSE Horse/Equine Containing Products (HORSE/EQUINE CONTAINING PRODUCTS) Allergy (Unknown, Verified 04/04/25 13:53) RUNNY NOSE Environmental/Seasonal Allergi Allergy (Unknown, Uncoded 12/01/24 10:35) Runny Nose Pt states no known food allerg Allergy (Unknown, Uncoded 12/01/24 10:35) Unknown SEASONAL ALLERGIES Allergy (Unknown, Uncoded 12/01/24 10:35) WATERY EYES Tobacco use date assessed: 04/04/25 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 How often do you have a drink containing alcohol?: Monthly or less 2. How many drinks containing alcohol do you have on a typical day when you are drinking?: 1 or 2 Total Score: 1 Physical exam (Primary Care) Vital Signs: Last Vital Signs Temp 97.6 F 04/04/25 13:56 Pulse 76 04/04/25 13:56 Resp 16 04/04/25 13:56 BP 116/67 04/04/25 14:00 Pulse Ox 97 04/04/25 13:56 Oxygen Delivery Method Room Air 04/04/25 13:56 Tobacco/Smoking Status: Tobacco use Status Tobacco use date assessed 04/04/25 04/04/25 13:58 Patient Tobacco Use Status Never used Tobacco 04/04/25 13:58 e-Cigarette/Vaping Use Never Used 04/04/25 13:58 Coding Level of Care Code New Pt Level 4 (27939) Complex EM visit Add On G2211 Diagnoses Hyperlipidemia E78.5 Assessment & Plan Assessment & Plan (1) Hyperlipidemia: Code(s): E78.5 - Hyperlipidemia, unspecified Category: Medical Plan: Blood work ordered. Will call with results. Plan History of Present Illness - The patient is a 44-year-old male presenting with a wellness check and preventative care discussion. - Hypertension: Managed with lisinopril, no current issues reported. - Asthma: Managed with albuterol and fluticasone inhalers, no current exacerbations reported. - Hyperlipidemia: Previous elevated cholesterol levels, patient willing to consider medication if necessary. - Hemorrhoids: Occasional diarrhea and bleeding, likely due to hemorrhoids. - Preventative care: Scheduled for colonoscopy for colon cancer screening. 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 - Exercise and Habits: No regular exercise regimen due to overnight work schedule, leading to irregular eating patterns. - Hearing: Reports worsening hearing, likely due to occupational noise exposure. Review of Systems - Cardiovascular: Denies chest pain, orthopnea, or syncope. - Respiratory: Denies dyspnea, cough, or wheezing. - Gastrointestinal: Reports occasional diarrhea and bleeding, denies other bowel movement issues. - Neurological: Denies headaches, dizziness, or balance issues. - Hearing: Reports worsening hearing, likely due to occupational noise exposure. Physical Exam General: Cooperative and healthy appearing Nutritional Appearance: Well nourished Orientation/consciousness: Patient oriented x3 Limitations: No limitations Head: Normal to inspection General: Appearance normal, both eyes and all related structures Neck: Normal visual inspection Chest: Normal palpation of entire chest wall Respiratory: Patient uses two inhalers, albuterol and fluticasone. ormal respiratory effort Neurology: Patient oriented x3, reports worsening hearing, likely due to occupational noise exposure. Results Plan 1. Essential Hypertension - Continue current management with lisinopril. 2. Asthma - Continue current management with albuterol and fluticasone inhalers. 3. Hyperlipidemia - Obtain fasting blood work to reassess cholesterol levels. - Consider initiation of lipid-lowering medication if cholesterol remains elevated. 4. Hemorrhoids - Monitor symptoms, consider further evaluation if bleeding persists. 5. Preventative Care: Colon Cancer Screening With Colonoscopy - Schedule colonoscopy for colon cancer screening. Discussion Notes During the visit, we discussed the importance of colon cancer screening and the options available, including colonoscopy and Cologuard. The patient opted for a colonoscopy, which will be scheduled. We also reviewed the patient's current management of hypertension and asthma, confirming that the current medications are effective. The patient expressed willingness to consider medication for hyperlipidemia if cholesterol levels remain high. We discussed the potential benefits and costs of weight loss medications like Ozempic, emphasizing the importance of insurance coverage and commitment to treatment. Lifestyle modifications, including dietary changes, were recommended as an alternative approach to weight management. Patient Instructions - Continue taking lisinopril and inhalers as prescribed. - Schedule and complete fasting blood work after midnight. - Prepare for colonoscopy as instructed once scheduled. - Consider dietary changes to manage weight, focusing on reducing sugars and carbohydrates. - Contact insurance to inquire about coverage for weight loss medications if interested. Orders: Orders Basic Metabolic Panel Today E78.5 - Hyperlipidemia, unspecified Liver Panel Today E78.5 - Hyperlipidemia, unspecified Complete Blood Count no Diff Today E78.5 - Hyperlipidemia, unspecified Lipid Panel Today E78.5 - Hyperlipidemia, unspecified Thyroid Stimulating Hormone Today E78.5 - Hyperlipidemia, unspecified UA and rflx microscopic Today E78.5 - Hyperlipidemia, unspecified Referrals Gastroenterology Referral Z12.11 - Encounter for screening for malignant neoplasm of colon
[2025-04-04 13:56] VITALS: BP 92/44; PULSE 76; RESP 16; TEMP 36.4; O2SAT 97
[2025-04-04 14:00] VITALS: BP 116/67
== END 2025-04-04 14:19 | disposition home or self-care (01) ==
LOC: HO.HMCHD 13:48
PROVIDERS: PCP Internal Medicine; Visit Provider Internal Medicine
DX: E78.5 Hyperlipidemia, unspecified (principal)

== ENCOUNTER 2025-04-08 09:15 | Outpatient (REF) | payer BC, SELFPAY ==
[2025-04-08 10:44] LABS: Hematocrit 42.9 % (42.0-52.0); Hemoglobin 15.0 g/dl (14.0-18.0); Mean Corpuscular HGB Conc 35.0 g/dl (31.0-36.0); Mean Corpuscular Hemoglobin 31.6 pg (27.0-33.0); Mean Corpuscular Volume 90.5 fL (80.0-98.0); NRBC Abs Auto 0.000 X10*3/uL (0.0-0.012); NRBC Pct Auto 0.0 /100WBC (0.0-0.2); Platelet Count 267 X10*3/uL (160-400); Red Blood Count 4.74 X10*6/uL (4.60-5.80); White Blood Count 5.8 X10*3/uL (4.8-10.8)
[2025-04-08 11:22] LABS: Alanine Aminotransferase 29 U/L (0-40); Albumin Level 4.3 g/dL (3.5-5.0); Alkaline Phosphatase 64 U/L (39-117); Anion Gap 12 (12-20); Aspartate Amino Transferase 32 U/L (5-37); Blood Urea Nitrogen 18 mg/dL (9-16); Calcium 8.5 mg/dL (8.4-10.2); Carbon Dioxide 23 mmol/L (22-29); Chloride 111 mmol/L (96-108); Cholesterol 175 mg/dL (<200); Estimated Glomerular Filt Rate > 60; HDL Cholesterol 29 mg/dL (>40); Potassium 4.0 mmol/L (3.3-5.1); Sodium 142 mmol/L (135-145); Total Protein 6.9 g/dL (6.5-8.0); Triglycerides 106 mg/dL (<150)
[2025-04-08 11:29] LABS: Thyroid Stimulating Hormone 1.80 uIU/mL (0.32-4.0)
[2025-04-08 14:09] LABS: Appearance Urine Turbid; Glucose Urine UA Negative (Negative); PH 5.5 (5.0-9.0); Specific Gravity - Urine >= 1.030 (1.005-1.025)
== END 2025-04-08 09:16 | disposition home or self-care (01) ==
LOC: HO.HMGCLDS 09:15
PROVIDERS: PCP Internal Medicine; Visit Provider Internal Medicine
DX: E78.5 Hyperlipidemia, unspecified (principal)
CPT/HCPCS: 36415; 80048; 80061; 80076; 81003; 84443; 85027